=== PATIENT | male | born 1995 | race Caucasian/White ===

== ENCOUNTER 2017-10-15 09:28 | Inpatient (IN) | payer BC ==
[~2017-10-15] VITALS: Ht 182.9 cm; Wt 108.0 kg
[2017-10-15] VITALS (14 sets, daily range): BP systolic 97–125
[2017-10-15] MEDS ORDERED: NACL 0.9% 1,000 ML IV ONE ×3 (09:31→12:00)
[2017-10-15] MEDS ORDERED: INSULIN REGULAR, HUMAN 100 UNITS in NS 99 ML IV ONE ×2 (09:45)
[2017-10-15 09:55] LABS: HEMOGLOBIN 15.4 g/dL (14.0-18.0); MEAN CORPUSCULAR HEMOGLOBIN 30 pg (27-31); MEAN CORPUSCULAR HGB CONC 31 % (32-36)
[2017-10-15 09:58] LABS: HEMATOCRIT 49.5 % (36-54); MEAN CORPUSCULAR VOLUME 97 fL (79.0-98.0); PLATELET COUNT (AUTO) 358 K/uL (130-430); RED BLOOD CELL COUNT(AUTO) 5.09 MIL/uL (4.2-6.2); RED CELL DISTRIBUTION WIDTH 13.1 % (9.0-15.0)
[2017-10-15] MEDS ORDERED: INSULIN REGULAR, HUMAN 10 UNITS/0.1 ML INJ IVP ONE ×3 (10:00→11:00)
[2017-10-15 10:21] LABS: ALBUMIN 4.8 g/dL (3.4-4.8); CALCIUM 9.8 mg/dL (8.4-11.0); CREATININE 2.52 mg/dL (0.55-1.30); TOTAL BILIRUBIN 0.7 mg/dL (0.0-1.0)
[2017-10-15 10:26] LABS: POTASSIUM 6.4 mmol/L (3.5-5.1)
[2017-10-15 10:30] LABS: BAND % (MANUAL) 13 % (0-6); BASOPHILS % (MANUAL) 0 % (0-2); EOSINOPHILS % (MANUAL) 0 % (0-7); LYMPHOCYTES % (MANUAL) 14 % (20-46); MONOCYTES % (MANUAL) 3 % (0-11)
[2017-10-15] MEDS: NACL 0.9% 1,000 ML IV SCH ×5 (10:40→20:35)
[2017-10-15] MEDS ORDERED: INSU100V SQ (11:09)
[2017-10-15 11:21] LABS: BILIRUBIN,URINE 1+ (NEGATIVE); CLARITY/URINE CLEAR (CLEAR); COLOR,URINE YELLOW (YELLOW); GLUCOSE,URINE 3+ (NEGATIVE); KETONES,URINE 3+ (NEGATIVE); LEUKOCYTE ESTERASE ,URINE NEGATIVE (NEGATIVE); NITRITE, URINE NEGATIVE (NEGATIVE); PROTEIN URINE TRACE (NEGATIVE); UROBILINOGEN,URINE 0.2 (0.2-1.0)
[2017-10-15 11:24] LABS: BLOOD, URINE TRACE (NEGATIVE)
[2017-10-15 11:27] LABS: BACTERIA,URINE RARE /HPF (None Seen); MUCUS,URINE 1+ /LPF (None Seen); WBC,URINE 0-3 /HPF (0-3)
[2017-10-15] MEDS ORDERED: cefTRIAXone 1 GM IVPB PREMIX 50 ML IV SCH (12:00)
[2017-10-15] MEDS ORDERED: DEXTROSE 50% JECT 50 ML DISP.SYRIN IVP PRN ×2 (12:15→20:30)
[2017-10-15] MEDS: INSULIN REGULAR, HUMAN 100 UNITS in NS 99 ML IV PRN ×8 (12:46→19:09)
[2017-10-15] MEDS: ONDANSETRON HCL 4 MG/2 ML VIAL IVP PRN (13:37)
[2017-10-15 14:17] LABS: CALCIUM 8.5 mg/dL (8.4-11.0); CREATININE 2.01 mg/dL (0.55-1.30)
[2017-10-15] MEDS: AMPICILLIN SODIUM/SULBACTAM NA 1.5 GM in NS 50 ML IV SCH (18:29)
[2017-10-15 20:16] LABS: CALCIUM 8.4 mg/dL (8.4-11.0); CREATININE 1.51 mg/dL (0.55-1.30); POTASSIUM 4.9 mmol/L (3.5-5.1)
[2017-10-15] MEDS ORDERED: INSULIN NPH 100 UNITS/ML 10 ML VIAL SUBCUT ONE ×2 (20:30→20:45)
[2017-10-15] MEDS: INSULIN NPH 100 UNITS/ML 10 ML VIAL SUBCUT SCH (20:38)
[2017-10-15] MEDS: ACETAMINOPHEN 325 MG TABLET PO PRN (20:51)
[2017-10-16] VITALS (23 sets, daily range): BP systolic 81–122
[2017-10-16] MEDS: AMPICILLIN SODIUM/SULBACTAM NA 1.5 GM in NS 50 ML IV SCH ×4 (00:12→18:06)
[2017-10-16] MEDS: INSULIN REGULAR, HUMAN 100 UNITS/ML, 10 ML VIAL (novoLIN R) SUBCUT PRN ×4 (00:21→11:33)
[2017-10-16] MEDS: ACETAMINOPHEN 325 MG TABLET PO PRN ×2 (04:25→11:46)
[2017-10-16] MEDS: NACL 0.9% 1,000 ML IV SCH ×2 (04:29→14:07)
[2017-10-16 06:05] LABS: BASOPHILS # (AUTO) 0.1 K/uL (0.0-0.2); BASOPHILS % (AUTO) 0.3 % (0.0-2.0); HEMATOCRIT 42.9 % (36-54); HEMOGLOBIN 13.8 g/dL (14.0-18.0); LYMPHOCYTES # (AUTO) 1.8 K/uL (1.0-5.5); MEAN CORPUSCULAR HEMOGLOBIN 30 pg (27-31); MEAN CORPUSCULAR HGB CONC 32 % (32-36); MEAN CORPUSCULAR VOLUME 93 fL (79.0-98.0); MONOCYTES # (AUTO) 1.1 K/uL (0.0-1.0); MONOCYTES % (AUTO) 4.7 % (1.7-9.3); PLATELET COUNT (AUTO) 246 K/uL (130-430); RED BLOOD CELL COUNT(AUTO) 4.64 MIL/uL (4.2-6.2); RED CELL DISTRIBUTION WIDTH 12.2 % (9.0-15.0)
[2017-10-16 06:23] LABS: ANION GAP 20 (5-15); CALCIUM 8.9 mg/dL (8.4-11.0); CHLORIDE 102 mmol/L (98-107); CREATININE 1.46 mg/dL (0.55-1.30); GLUCOSE 276 mg/dL (70-99); POTASSIUM 4.3 mmol/L (3.5-5.1); SODIUM SERUM 135 mmol/L (136-145); UREA NITROGEN, BLOOD 14 mg/dL (8-21)
[2017-10-16 06:24] LABS: ALANINE AMINOTRANSFERASE 18 U/L (12-78); ALBUMIN 3.9 g/dL (3.4-4.8); ASPARTATE AMINOTRANSFERASE 14 U/L (10-37); CHOLESTEROL 183 mg/dL (<200); HDL CHOLESTEROL 45 mg/dL (>45); LDL CHOLESTEROL 112 mg/dL (<100); TOTAL BILIRUBIN 0.5 mg/dL (0.0-1.0); TRIGLYCERIDES 144 mg/dL (30-150)
[2017-10-16] MEDS: INSULIN NPH 100 UNITS/ML 10 ML VIAL SUBCUT SCH (06:33)
[2017-10-16 06:44] LABS: GFR AFRICAN AMERICAN 79 mL/min (>90)
[2017-10-16 06:56] LABS: ACETONE, SERUM SMALL (NEGATIVE)
[2017-10-16] MEDS ORDERED: PANTOPRAZOLE SODIUM 40 MG TAB PO SCH (10:45)
[2017-10-16] MEDS ORDERED: PANTOPRAZOLE SODIUM 40 MG TAB PO ONE (11:00)
[2017-10-16] MEDS: ONDANSETRON HCL 4 MG/2 ML VIAL IVP PRN (11:51)
[2017-10-16] MEDS ORDERED: INSULIN REGULAR, HUMAN 100 UNITS in NS 99 ML IV PRN ×2 (12:00)
[2017-10-16] MEDS ORDERED: COMMUNICATION ORDER XX ONE (12:00)
[2017-10-16] MEDS ORDERED: D5/0.45 NS 1,000 ML IV PRN ×2 (12:30)
[2017-10-16 12:50] LABS: CALCIUM 8.8 mg/dL (8.4-11.0); CREATININE 1.27 mg/dL (0.55-1.30); POTASSIUM 4.4 mmol/L (3.5-5.1)
[2017-10-16] MEDS: POTASSIUM CHLORIDE 20 MEQ in 0.45% NACL 1,000 ML IV SCH ×2 (13:33→21:35)
[2017-10-16] MEDS: MORPHINE 4 MG/ML INJ. SYRINGE IVP PRN ×2 (15:43→19:53)
[2017-10-16] MEDS ORDERED: INSULIN NPH 100 UNITS/ML 10 ML VIAL SUBCUT SCH (17:00)
[2017-10-16 17:44] LABS: CALCIUM 8.7 mg/dL (8.4-11.0); CREATININE 1.23 mg/dL (0.55-1.30); PHOSPHORUS 1.8 mg/dL (2.7-4.5); POTASSIUM 3.8 mmol/L (3.5-5.1)
[2017-10-16] MEDS ORDERED: KCL 20 mEq in D5/0.45NS 1000mL 1,000 ML IV SCH (18:15)
[2017-10-16 22:39] LABS: CALCIUM 8.7 mg/dL (8.4-11.0); CREATININE 1.11 mg/dL (0.55-1.30); PHOSPHORUS 1.7 mg/dL (2.7-4.5); POTASSIUM 3.8 mmol/L (3.5-5.1)
[2017-10-17] VITALS (19 sets, daily range): BP systolic 108–137
[2017-10-17] MEDS: AMPICILLIN SODIUM/SULBACTAM NA 1.5 GM in NS 50 ML IV SCH ×4 (00:12→18:07)
[2017-10-17] MEDS: EXCEDRIN EXTRA STRENGTH PO PRN ×4 (01:04→22:51)
[2017-10-17] MEDS: MORPHINE 4 MG/ML INJ. SYRINGE IVP PRN ×4 (03:32→18:16)
[2017-10-17] MEDS: POTASSIUM CHLORIDE 20 MEQ in 0.45% NACL 1,000 ML IV SCH ×3 (04:22→11:48)
[2017-10-17 06:34] LABS: BASOPHILS % (AUTO) 0.3 % (0.0-2.0); EOSINOPHILS % (AUTO) 0.1 % (0.0-4.0); HEMATOCRIT 37.1 % (36-54); LYMPHOCYTES # (AUTO) 2.4 K/uL (1.0-5.5); LYMPHOCYTES % (AUTO) 20.9 % (20.5-51.5); MEAN CORPUSCULAR HEMOGLOBIN 32 pg (27-31); MEAN CORPUSCULAR HGB CONC 35 % (32-36); MEAN CORPUSCULAR VOLUME 91 fL (79.0-98.0); MONOCYTES # (AUTO) 0.6 K/uL (0.0-1.0); MONOCYTES % (AUTO) 4.9 % (1.7-9.3); NEUTROPHILS # (AUTO) 8.7 K/uL (1.8-7.7); PLATELET COUNT (AUTO) 193 K/uL (130-430); RED BLOOD CELL COUNT(AUTO) 4.08 MIL/uL (4.2-6.2); WHITE BLOOD COUNT (AUTO) 11.7 K/uL (4.5-11.0)
[2017-10-17 08:18] LABS: ANION GAP 15 (5-15); CALCIUM 8.8 mg/dL (8.4-11.0); CHLORIDE 102 mmol/L (98-107); CREATININE 1.05 mg/dL (0.55-1.30); GLUCOSE 181 mg/dL (70-99); POTASSIUM 3.6 mmol/L (3.5-5.1); SODIUM SERUM 138 mmol/L (136-145); UREA NITROGEN, BLOOD 5 mg/dL (8-21)
[2017-10-17 08:20] LABS: GFR AFRICAN AMERICAN 116 mL/min (>90)
[2017-10-17 08:22] LABS: ACETONE, SERUM MODERATE (NEGATIVE)
[2017-10-17 08:31] LABS: PHOSPHORUS 1.3 mg/dL (2.7-4.5); THYROID STIMULATING HORMONE 1.13 uIu/mL (0.34-4.82)
[2017-10-17] MEDS ORDERED: NAPH,MB-DB/K PH,MBDB 250 MG TAB PO ONE (09:00)
[2017-10-17] MEDS ORDERED: BENZOCAINE/MENTHOL 1 EACH LOZENGE MM PRN (09:45)
[2017-10-17] MEDS ORDERED: PHENOL/MENTHOL 14.5 MG LOZENGE MM PRN (09:45)
[2017-10-17 10:18] LABS: NEUTROPHILS % (AUTO) 73.8 % (40.0-70.0)
[2017-10-17] MEDS ORDERED: DEXTROSE 50% JECT 50 ML DISP.SYRIN IVP PRN (12:00)
[2017-10-17] MEDS ORDERED: BENZOCAINE/MENTHOL LOZENGE MM PRN (13:15)
[2017-10-17] MEDS: NYSTATIN 500,000 UNITS/5 ML UDC PO SCH ×3 (16:27→23:53)
[2017-10-17] MEDS ORDERED: AMOX-426 PO (19:26)
[2017-10-17] MEDS ORDERED: LACT1CAP PO (19:27)
[2017-10-17] MEDS ORDERED: NYSSUS PO (19:34)
[2017-10-17] MEDS ORDERED: DIF100 PO (19:38)
[2017-10-17] MEDS: FLUCONAZOLE 100 MG TABLET (DIFLUCAN) PO SCH (20:40)
[2017-10-17] MEDS ORDERED: D5/0.45 NS 1,000 ML IV SCH (21:00)
[2017-10-18] MEDS: MORPHINE 4 MG/ML INJ. SYRINGE IVP PRN ×5 (00:11→21:32)
[2017-10-18] MEDS ORDERED: AMPICILLIN SODIUM/SULBACTAM NA 3 GM VIAL ONE ×2 (00:36→00:39)
[2017-10-18 00:47] VITALS: BP_SYST 125
[2017-10-18] MEDS: AMPICILLIN SODIUM/SULBACTAM NA 3 GM in NS 100 ML IV SCH ×4 (00:55→17:45)
[2017-10-18 04:46] VITALS: BP_SYST 120
[2017-10-18] MEDS: NYSTATIN 500,000 UNITS/5 ML UDC PO SCH ×3 (05:32→17:45)
[2017-10-18 06:39] LABS: BASOPHILS # (AUTO) 0.1 K/uL (0.0-0.2); BASOPHILS % (AUTO) 0.7 % (0.0-2.0); EOSINOPHILS # (AUTO) 0.1 K/uL (0.0-0.4); EOSINOPHILS % (AUTO) 0.7 % (0.0-4.0); HEMATOCRIT 39.9 % (36-54); HEMOGLOBIN 13.5 g/dL (14.0-18.0); LYMPHOCYTES # (AUTO) 2.3 K/uL (1.0-5.5); LYMPHOCYTES % (AUTO) 29.9 % (20.5-51.5); MEAN CORPUSCULAR HEMOGLOBIN 31 pg (27-31); MEAN CORPUSCULAR HGB CONC 34 % (32-36); MEAN CORPUSCULAR VOLUME 91 fL (79.0-98.0); MONOCYTES # (AUTO) 0.6 K/uL (0.0-1.0); MONOCYTES % (AUTO) 7.9 % (1.7-9.3); NEUTROPHILS # (AUTO) 4.7 K/uL (1.8-7.7); NEUTROPHILS % (AUTO) 60.8 % (40.0-70.0); PLATELET COUNT (AUTO) 195 K/uL (130-430); RED BLOOD CELL COUNT(AUTO) 4.41 MIL/uL (4.2-6.2); RED CELL DISTRIBUTION WIDTH 11.8 % (9.0-15.0); WHITE BLOOD COUNT (AUTO) 7.8 K/uL (4.5-11.0)
[2017-10-18 07:00] LABS: ANION GAP 5 (5-15); CALCIUM 8.8 mg/dL (8.4-11.0); CHLORIDE 102 mmol/L (98-107); CREATININE 1.08 mg/dL (0.55-1.30); GLUCOSE 109 mg/dL (70-99); PHOSPHORUS 2.2 mg/dL (2.7-4.5); SODIUM SERUM 139 mmol/L (136-145); UREA NITROGEN, BLOOD 4 mg/dL (8-21)
[2017-10-18 07:05] LABS: GFR AFRICAN AMERICAN 112 mL/min (>90); POTASSIUM 2.8 mmol/L (3.5-5.1)
[2017-10-18 07:14] LABS: ACETONE, SERUM POSITIVE (NEGATIVE)
[2017-10-18 08:00] VITALS: BP_SYST 123
[2017-10-18] MEDS ORDERED: POTASSIUM CHLORIDE 20 MEQ/PKT PACKET PO ONE (08:00)
[2017-10-18] MEDS ORDERED: POTASSIUM CHLORIDE 40 MEQ in 0.45% NS 250 ML IV ONE ×2 (08:15→10:15)
[2017-10-18] MEDS ORDERED: POTASSIUM CHLORIDE 20 MEQ TAB.PRT.SR PO ONE ×2 (08:30→13:30)
[2017-10-18] MEDS: FLUCONAZOLE 100 MG TABLET (DIFLUCAN) PO SCH (09:04)
[2017-10-18] MEDS ORDERED: COMMUNICATION ORDER XX ONE (10:15)
[2017-10-18] MEDS ORDERED: SUMAtriptan SUCCINATE 50 MG TABLET PO ONE (11:15)
[2017-10-18 12:51] VITALS: BP_SYST 116
[2017-10-18 16:13] VITALS: BP_SYST 128
[2017-10-18 20:00] VITALS: BP_SYST 122
[2017-10-19 00:59] VITALS: BP_SYST 137
[2017-10-19] MEDS: AMPICILLIN SODIUM/SULBACTAM NA 3 GM in NS 100 ML IV SCH ×4 (01:04→17:19)
[2017-10-19] MEDS: NYSTATIN 500,000 UNITS/5 ML UDC PO SCH ×4 (01:04→17:19)
[2017-10-19 04:41] VITALS: BP_SYST 138
[2017-10-19] MEDS: MORPHINE 4 MG/ML INJ. SYRINGE IVP PRN ×3 (06:05→17:21)
[2017-10-19 07:25] LABS: CALCIUM 9.2 mg/dL (8.4-11.0); CREATININE 0.74 mg/dL (0.55-1.30)
[2017-10-19 07:30] LABS: POTASSIUM 2.9 mmol/L (3.5-5.1)
[2017-10-19 08:00] VITALS: BP_SYST 131
[2017-10-19] MEDS ORDERED: POTASSIUM CHLORIDE 20 MEQ TAB.PRT.SR PO ONE (08:00)
[2017-10-19] MEDS ORDERED: POTASSIUM CHLORIDE 40 MEQ in 0.45% NS 250 ML IV ONE (08:00)
[2017-10-19] MEDS: FLUCONAZOLE 100 MG TABLET (DIFLUCAN) PO SCH (09:03)
[2017-10-19] MEDS ORDERED: SUMAtriptan SUCCINATE 50 MG TABLET PO PRN ×2 (11:30→18:15)
[2017-10-19 12:14] VITALS: BP_SYST 116
[2017-10-19 16:19] VITALS: BP_SYST 133
[2017-10-19 18:15] LABS: CALCIUM 9.3 mg/dL (8.4-11.0); CREATININE 0.8 mg/dL (0.55-1.30); POTASSIUM 3.6 mmol/L (3.5-5.1)
[2017-10-19] MEDS ORDERED: IMI50 PO (19:22)
[2017-10-19 19:36] VITALS: BP_SYST 131
[2017-10-20] MEDS ORDERED: POTASSIUM CHLORIDE 20 MEQ TAB.PRT.SR PO SCH (09:00)
== END 2017-10-19 19:54 | disposition home or self-care (01) | DRG 871 ==
LOC: SED 09:28 → SIC 11:22 → STU 10-17 15:40 → SMU 10-17 20:33
PROVIDERS: ADMIT Internal Medicine; ATTEND Internal Medicine
DX: A41.9 Sepsis, unspecified organism (principal); E10.10 Type 1 diabetes mellitus with ketoacidosis without coma; B37.89 Other sites of candidiasis; N17.9 Acute kidney failure, unspecified; R13.10 Dysphagia, unspecified; E10.649 Type 1 diabetes mellitus with hypoglycemia without coma; D72.825 Bandemia; E66.9 Obesity, unspecified; F12.90 Cannabis use, unspecified, uncomplicated; J02.8 Acute pharyngitis due to other specified organisms; K21.0 Gastro-esophageal reflux disease with esophagitis; E86.0 Dehydration; J32.9 Chronic sinusitis, unspecified; G43.909 Migraine, unspecified, not intractable, without status migrainosus; G44.89 Other headache syndrome; E87.6 Hypokalemia; L04.0 Acute lymphadenitis of face, head and neck; Z79.4 Long term (current) use of insulin; Z91.19 Patient's noncompliance with other medical treatment and regimen; Z68.32 Body mass index [BMI] 32.0-32.9, adult
CPT/HCPCS: 36415; 36600; 70450-TC; 70486-TC; 71010; 80048; 80053; 80061; 81000-TC; 82009-TC; 82803-TC; 82962; 83036; 83605; 83690-TC; 83735-TC; 84100-TC; 84132-TC; 84443-TC; 84484; 85007; 85025; 85027; 87040-TC; 87081; 93005; 96361; 96374; 96376; 99285; J0295; J0696; J1815; J2270; J2405; J3480; J7030; J7040

== ENCOUNTER 2020-07-23 10:04 | Emergency (ER) | payer BC ==
[~2020-07-23] VITALS: Ht 182.9 cm; Wt 111.1 kg
[2020-07-23 10:04] VITALS: BP_SYST 139
[~2020-07-23 10:04] MED LIST: ACIDOPHILUS PROB1 MG PO; AMOX-426 PO; DIF100 PO; IMI50 PO; INSU100V SQ; NYSSUS PO
--- NOTE | 2020-07-23 10:08 | NUR ---
BROUGHT BACK TO BED #3 AND TRIAGED. REPORT GIVEN TO ANA
--- NOTE | 2020-07-23 10:10 | NUR ---
Patient arrived in the ED c/o right flank pain that started this morning. Denied any chest pain or shortness of breath. Denied any fevers and chills. Patient is alert and oriented x4, respirations even and unlabored, speaking in full sentences, and ambulating with a steady gait. VSS, pain level 8/10. Informed of the approximate wait time. Instructed to notify ED staff for any changes in condition or worsening of symptoms while waiting to be seen by an ED provider. Patient verbalized understanding.
--- NOTE | 2020-07-23 10:25 | NUR ---
# 18 gauge angiocath placed to RAC. Use of asceptic technique. Opsite placed over site. Blood return noted. Blood for lab drawn from site. Flushed with 10 cc of normal saline. No evidence of infiltration noted. Patient tolerated well.
[2020-07-23] MEDS ORDERED: KETOROLAC TROMETHAMINE 30 MG VIAL IVP ONE (10:30)
[2020-07-23] MEDS ORDERED: NACL 0.9% 1,000 ML IV ONE ×2 (10:30→11:00)
--- NOTE | 2020-07-23 10:30 | NUR ---
ER Dr. Cespedes at bedside examining patient.
--- NOTE | 2020-07-23 10:31 | NUR ---
Administered Toradol IVP as ordered by Dr. Cespedes. Patient tolerated the medications well. See eMAR for details.
--- NOTE | 2020-07-23 10:52 | NUR ---
ER Dr. Cespedes at bedside re-examining patient.
[2020-07-23] MEDS ORDERED: MORPHINE 4 MG/ML INJ. SYRINGE IVP ONE ×2 (11:00→13:00)
[2020-07-23] MEDS ORDERED: ONDANSETRON HCL 4 MG/2 ML VIAL IVP ONE (11:00)
--- NOTE | 2020-07-23 11:04 | NUR ---
Administered Morphine Sulfate and Zofran IVP as ordered by Dr. Cespedes. Patient tolerated the medications well. See eMAR for details.
--- NOTE | 2020-07-23 12:01 | NUR ---
URINE OBTAINED, IV HL. NO DISTRESSS, RESP UNLABORED
--- NOTE | 2020-07-23 12:58 | NUR ---
Administered Morphine Sulfate IVP as ordered by Dr. Cespedes. Patient tolerated the medications well. See eMAR for details.
[2020-07-23 13:03] VITALS: BP_SYST 126
--- NOTE | 2020-07-23 13:04 | NUR ---
Patient given written and verbal discharge instructions and verbalizes understanding. ER MD discussed with patient the results and treatment provided. Patient in stable condition. ID arm band removed. IV catheter removed intact and dressing applied, no active bleeding. Rx of Motrin, Flomax, and [place] given. Patient educated on pain management and to follow up with PMD. Pain Scale 0/10. Opportunity for questions provided and answered. Medication side effect fact sheet provided.
== END 2020-07-23 13:04 | disposition home or self-care (01) ==
LOC: SED 10:04
DX: R10.9 Unspecified abdominal pain (principal); E11.29 Type 2 diabetes mellitus with other diabetic kidney complication; N28.9 Disorder of kidney and ureter, unspecified; F12.90 Cannabis use, unspecified, uncomplicated; Z87.442 Personal history of urinary calculi; Z79.899 Other long term (current) drug therapy; Z79.4 Long term (current) use of insulin
CPT/HCPCS: 82962; 96361; 96374; 96375; 96376; 99284; J1885; J2270; J2405; J7030

== ENCOUNTER 2020-08-01 07:29 | Emergency (ER) | payer BC ==
[~2020-08-01] VITALS: Ht 180.3 cm; Wt 108.9 kg
[2020-08-01 07:35] VITALS: BP_SYST 134
--- NOTE | 2020-08-01 07:41 | NUR ---
Patient to ER bed 6 to gown for evaluation. Side rails up. Report given to Katya POTTER.
--- NOTE | 2020-08-01 07:45 | NUR ---
Pt walked in to ER with c/o right flank pain, 7/10 for 2 days. Reports being in the ER recently and diagnosed with kidney stones. States [place] and Motrin are not working. V/S stable, pt is afebrile. Currently resting in bed, will continue to monitor.
--- NOTE | 2020-08-01 07:50 | NUR ---
ER Dr. Hope at bedside examining patient.
[2020-08-01] MEDS ORDERED: NACL 0.9% 1,000 ML IV ONE (07:57)
[2020-08-01] MEDS ORDERED: MORPHINE 2 MG/ML INJ. SYRINGE IVP ONE (08:00)
[2020-08-01] MEDS ORDERED: ONDANSETRON HCL 4 MG/2 ML VIAL IVP ONE (08:00)
--- NOTE | 2020-08-01 08:00 | NUR ---
# 20 gauge angiocath placed to LAC. Use of asceptic technique. Opsite placed over site. Blood return noted. Blood for lab drawn from site. Flushed with 10 cc of normal saline. No evidence of infiltration noted. Patient tolerated well.
--- NOTE | 2020-08-01 08:10 | NUR ---
1L NS bolus infusing as per MD order.
--- NOTE | 2020-08-01 08:15 | NUR ---
Patient transported to radiology via wheelchair, accompanied by staff.
[2020-08-01 08:29] LABS: BASOPHILS % (AUTO) 0.5 % (0.0-2.0); EOSINOPHILS # (AUTO) 0.2 K/uL (0.0-0.4); EOSINOPHILS % (AUTO) 2.3 % (0.0-4.0); HEMATOCRIT 40.9 % (36-54); HEMOGLOBIN 13.7 g/dL (14.0-18.0); LYMPHOCYTES # (AUTO) 2.5 K/uL (1.0-5.5); LYMPHOCYTES % (AUTO) 27.7 % (20.5-51.5); MEAN CORPUSCULAR HEMOGLOBIN 31 pg (27-31); MEAN CORPUSCULAR HGB CONC 34 % (32-36); MEAN CORPUSCULAR VOLUME 93 fL (79.0-98.0); MONOCYTES # (AUTO) 0.6 K/uL (0.0-1.0); MONOCYTES % (AUTO) 6.4 % (1.7-9.3); NEUTROPHILS # (AUTO) 5.7 K/uL (1.8-7.7); NEUTROPHILS % (AUTO) 63.1 % (40.0-70.0); PLATELET COUNT (AUTO) 203 K/uL (130-430); RED BLOOD CELL COUNT(AUTO) 4.41 MIL/uL (4.2-6.2); RED CELL DISTRIBUTION WIDTH 12.9 % (9.0-15.0)
[2020-08-01 08:38] LABS: CALCIUM 8.6 mg/dL (8.4-11.0); CREATININE 1.02 mg/dL (0.55-1.30); POTASSIUM 4.3 mmol/L (3.5-5.1)
--- NOTE | 2020-08-01 08:40 | NUR ---
Urine sample collected and sent to lab as per MD order.
[2020-08-01 08:43] LABS: ALBUMIN 3.6 g/dL (3.4-4.8); TOTAL BILIRUBIN 0.6 mg/dL (0.0-1.0)
[2020-08-01 09:02] LABS: BILIRUBIN,URINE NEGATIVE (NEGATIVE); BLOOD, URINE 1+ (NEGATIVE); CLARITY/URINE CLEAR (CLEAR); COLOR,URINE YELLOW (YELLOW); GLUCOSE,URINE 3+ (NEGATIVE); KETONES,URINE 1+ (NEGATIVE); LEUKOCYTE ESTERASE ,URINE NEGATIVE (NEGATIVE); NITRITE, URINE NEGATIVE (NEGATIVE); PH,URINE 5.5 (5.0-8.0); PROTEIN URINE NEGATIVE (NEGATIVE); UROBILINOGEN,URINE 0.2 (0.2-1.0)
[2020-08-01 09:16] LABS: BACTERIA,URINE None Seen /HPF (None Seen); TRICHOMONAS,URINE None Seen /HPF (None Seen); WBC,URINE NONE SEEN /HPF (0-3); YEAST,URINE None Seen /HPF (None Seen)
[2020-08-01] MEDS ORDERED: KETOROLAC TROMETHAMINE 30 MG VIAL IVP ONE (10:00)
--- NOTE | 2020-08-01 10:54 | NUR ---
Patient given written and verbal discharge instructions and verbalizes understanding. ER MD discussed with patient the results and treatment provided. Patient in stable condition. ID arm band removed. IV catheter removed intact and dressing applied, no active bleeding. Rx of [place] given. Patient educated on pain management and to follow up with PMD. Pain Scale 0/10. Opportunity for questions provided and answered. Medication side effect fact sheet provided.
[2020-08-01 10:55] VITALS: BP_SYST 134
== END 2020-08-01 10:55 | disposition home or self-care (01) ==
LOC: SED 07:29
DX: N20.0 Calculus of kidney (principal); E11.29 Type 2 diabetes mellitus with other diabetic kidney complication; N28.9 Disorder of kidney and ureter, unspecified; F17.290 Nicotine dependence, other tobacco product, uncomplicated; Z79.4 Long term (current) use of insulin; Z79.899 Other long term (current) drug therapy
CPT/HCPCS: 36415; 74176; 80053; 81000; 85025; 96361; 96374; 96375; 99284; J1885; J2270; J2405; J7030

== ENCOUNTER 2020-09-27 03:26 | Emergency (ER) | payer BC ==
[~2020-09-27] VITALS: Ht 180.3 cm; Wt 99.8 kg
[2020-09-27 03:35] VITALS: BP_SYST 147
[2020-09-27] MEDS ORDERED: NACL 0.9% 1,000 ML IV ONE (04:00)
[2020-09-27] MEDS ORDERED: DIPHENHYDRAMINE INJ 50 MG/ML VIAL IVP ONE (04:00)
[2020-09-27] MEDS ORDERED: ONDANSETRON HCL 4 MG/2 ML VIAL IVP ONE (04:00)
[2020-09-27] MEDS ORDERED: KETOROLAC TROMETHAMINE 30 MG VIAL IVP ONE (04:00)
[2020-09-27] MEDS ORDERED: MORPHINE 4 MG/ML INJ. SYRINGE IVP ONE (04:00)
[2020-09-27 04:28] LABS: EOSINOPHILS # (AUTO) 0.2 K/uL (0.0-0.4); MONOCYTES # (AUTO) 0.6 K/uL (0.0-1.0)
[2020-09-27 04:33] LABS: BASOPHILS # (AUTO) 0.1 K/uL (0.0-0.2); BASOPHILS % (AUTO) 0.8 % (0.0-2.0); EOSINOPHILS % (AUTO) 1.9 % (0.0-4.0); HEMATOCRIT 42.2 % (36-54); HEMOGLOBIN 14.4 g/dL (14.0-18.0); LYMPHOCYTES # (AUTO) 3.5 K/uL (1.0-5.5); LYMPHOCYTES % (AUTO) 34.2 % (20.5-51.5); MEAN CORPUSCULAR HEMOGLOBIN 31 pg (27-31); MEAN CORPUSCULAR HGB CONC 34 % (32-36); MEAN CORPUSCULAR VOLUME 91 fL (79.0-98.0); MONOCYTES % (AUTO) 5.9 % (1.7-9.3); NEUTROPHILS # (AUTO) 5.8 K/uL (1.8-7.7); NEUTROPHILS % (AUTO) 57.2 % (40.0-70.0); PLATELET COUNT (AUTO) 232 K/uL (130-430); RED BLOOD CELL COUNT(AUTO) 4.66 MIL/uL (4.2-6.2); RED CELL DISTRIBUTION WIDTH 12.8 % (9.0-15.0); WHITE BLOOD COUNT (AUTO) 10.2 K/uL (4.8-10.8)
[2020-09-27 04:42] LABS: CALCIUM 8.8 mg/dL (8.4-11.0); CREATININE 0.98 mg/dL (0.55-1.30); POTASSIUM 3.4 mmol/L (3.5-5.1)
[2020-09-27 04:48] LABS: ALBUMIN 3.7 g/dL (3.4-4.8); TOTAL BILIRUBIN 0.3 mg/dL (0.0-1.0)
[2020-09-27 05:44] VITALS: BP_SYST 147
== END 2020-09-27 05:51 | disposition home or self-care (01) ==
LOC: SED 03:26
DX: N20.0 Calculus of kidney (principal); I10 Essential (primary) hypertension; R10.9 Unspecified abdominal pain; E11.9 Type 2 diabetes mellitus without complications; F12.90 Cannabis use, unspecified, uncomplicated; Z79.4 Long term (current) use of insulin; Z87.442 Personal history of urinary calculi; Z79.899 Other long term (current) drug therapy
CPT/HCPCS: 36415; 74176; 76376; 80053; 85025; 96361; 96374; 96375; 99284; J1200; J1885; J2270; J2405; J7030

== ENCOUNTER 2021-10-19 01:21 | Emergency (ER) | payer BC ==
[~2021-10-19] VITALS: Ht 198.1 cm; Wt 108.9 kg
[2021-10-19 01:54] VITALS: BP_SYST 128
[2021-10-19] MEDS ORDERED: KETOROLAC TROMETHAMINE 30 MG VIAL IVP ONE (02:45)
[2021-10-19] MEDS ORDERED: NACL 0.9% 1,000 ML IV ONE ×2 (02:45→06:00)
[2021-10-19] MEDS ORDERED: METOCLOPRAMIDE HCL 10 MG/2 ML VIAL IVP ONE (02:45)
[2021-10-19] MEDS ORDERED: MORPHINE 4 MG INJ. 4 MG/ML VIAL IVP ONE ×2 (02:45→04:00)
--- NOTE | 2021-10-19 02:46 | NUR ---
Patient ambulatory to bed 3 for evaluation and treatment
[2021-10-19 03:22] LABS: BASOPHILS # (AUTO) 0.1 K/uL (0.0-0.2); BASOPHILS % (AUTO) 0.6 % (0.0-2.0); EOSINOPHILS # (AUTO) 0.1 K/uL (0.0-0.4); EOSINOPHILS % (AUTO) 0.6 % (0.0-4.0); HEMATOCRIT 45.1 % (36-54); HEMOGLOBIN 15.1 g/dL (14.0-18.0); LYMPHOCYTES # (AUTO) 2.7 K/uL (1.0-5.5); LYMPHOCYTES % (AUTO) 19.1 % (20.5-51.5); MEAN CORPUSCULAR HEMOGLOBIN 31 pg (27-31); MEAN CORPUSCULAR HGB CONC 34 % (32-36); MEAN CORPUSCULAR VOLUME 91 fL (79.0-98.0); MONOCYTES # (AUTO) 0.9 K/uL (0.0-1.0); MONOCYTES % (AUTO) 6.1 % (1.7-9.3); NEUTROPHILS # (AUTO) 10.5 K/uL (1.8-7.7); NEUTROPHILS % (AUTO) 73.6 % (40.0-70.0); PLATELET COUNT (AUTO) 279 K/uL (130-430); RED BLOOD CELL COUNT(AUTO) 4.96 MIL/uL (4.2-6.2); RED CELL DISTRIBUTION WIDTH 13.2 % (9.0-15.0); WHITE BLOOD COUNT (AUTO) 14.3 K/uL (4.8-10.8)
[2021-10-19 03:30] LABS: CALCIUM 9.5 mg/dL (8.4-11.0); CREATININE 0.84 mg/dL (0.55-1.30); POTASSIUM 3.6 mmol/L (3.5-5.1)
[2021-10-19 03:36] LABS: ALBUMIN 4.3 g/dL (3.4-4.8); TOTAL BILIRUBIN 0.4 mg/dL (0.0-1.0)
--- NOTE | 2021-10-19 03:41 | NUR ---
ER Dr. Au at bedside examining patient.
--- NOTE | 2021-10-19 04:12 | NUR ---
Patient resting quietly. No acute distress noted. Vital signs within normal range.
[2021-10-19] MEDS ORDERED: TAMSULOSIN HCL 0.4 MG CAP PO ONE (05:00)
[2021-10-19] MEDS ORDERED: HYDROmorphone 1 MG/ML INJ. CARTRIDGE IVP ONE (05:00)
--- NOTE | 2021-10-19 05:04 | NUR ---
Patient flank pain, pain rate 05/19, Dr. Au notified.
[2021-10-19] MEDS ORDERED: PROCHLORPERAZINE EDISYLATE 10 MG/2 ML VIAL IVP ONE (05:15)
[2021-10-19 05:45] LABS: BILIRUBIN,URINE NEGATIVE (NEGATIVE); BLOOD, URINE 3+ (NEGATIVE); CLARITY/URINE CLOUDY (CLEAR); COLOR,URINE YELLOW (YELLOW); GLUCOSE,URINE NEGATIVE (NEGATIVE); KETONES,URINE 3+ (NEGATIVE); LEUKOCYTE ESTERASE ,URINE NEGATIVE (NEGATIVE); NITRITE, URINE NEGATIVE (NEGATIVE); PROTEIN URINE TRACE (NEGATIVE); UROBILINOGEN,URINE 0.2 (0.2-1.0)
[2021-10-19] MEDS ORDERED: TAMS-11 PO (05:47)
[2021-10-19] MEDS ORDERED: PERC10 PO (05:47)
[2021-10-19] MEDS ORDERED: PHE25 PO (05:47)
[2021-10-19 06:23] LABS: RBC,URINE 50-80 /HPF (0-3)
[2021-10-19 06:24] LABS: BACTERIA,URINE MANY /HPF (None Seen); WBC,URINE 0-3 /HPF (0-3)
[2021-10-19 06:25] LABS: MUCUS,URINE None Seen /LPF (None Seen)
[2021-10-19] MEDS ORDERED: CEPH250C PO (06:47)
[2021-10-19 06:53] VITALS: BP_SYST 128
--- NOTE | 2021-10-19 06:53 | NUR ---
Patient given written and verbal discharge instructions and verbalizes understanding. ER MD discussed with patient the results and treatment provided. Patient in stable condition. ID arm band removed. IV catheter removed intact and dressing applied, no active bleeding. Rx of Keflex, Oxycodone, Phenergan and floxax given. Patient educated on pain management and to follow up with PMD. Pain Scale 1/10. Opportunity for questions provided and answered. Medication side effect fact sheet provided.
== END 2021-10-19 06:53 | disposition home or self-care (01) ==
LOC: SED 01:21
DX: N13.30 Unspecified hydronephrosis (principal); N23 Unspecified renal colic; E11.9 Type 2 diabetes mellitus without complications; Z79.4 Long term (current) use of insulin; Z79.899 Other long term (current) drug therapy
CPT/HCPCS: 36415; 80053; 81000; 85025; 87086; 96361; 96374; 96375; 96376; 99284; J0780; J1170; J1885; J2270; J2765; J7030